=== PATIENT | male | born 1995 | race Hispanic/Latino ===

== ENCOUNTER 2017-06-25 16:44 | Emergency (ER) | payer SELFPAY ==
[~2017-06-25] VITALS: Ht 180.3 cm; Wt 59.0 kg
[2017-06-25] MEDS ORDERED: KETOROLAC TROMETHAMINE 60 MG/2 ML VIAL IM ONE (17:15)
== END 2017-06-25 17:44 | disposition left against medical advice (07) ==
LOC: FSED 16:44
DX: S30.1XXA Contusion of abdominal wall, initial encounter (principal); S30.811A Abrasion of abdominal wall, initial encounter; S70.211A Abrasion, right hip, initial encounter; S70.01XA Contusion of right hip, initial encounter; M79.651 Pain in right thigh; M25.561 Pain in right knee; W23.1XXA Caught, crushed, jammed, or pinched between stationary objects, initial encounter; Y99.0 Civilian activity done for income or pay
CPT/HCPCS: 99282; J1885